=== PATIENT | female | born 1965 | race Asian ===

== ENCOUNTER → 2016-12-06 | Outpatient (CLI) | payer BC ==
[~2016-12-06] MED LIST: IBUP-1542 PO; MAG355OR14 PO; NO MEDS.; OXYC-279 PO
[2016-12-06 16:30] LABS: ADD UMIC YES; URINE BILIRUBIN (Dip) NEGATIVE (NEGATIVE); URINE BLOOD (Dip) 3+ (NEGATIVE); URINE COLOR LT. YELLOW (YELLOW); URINE GLUCOSE (Dip) NEGATIVE (NEGATIVE); URINE KETONES (Dip) NEGATIVE (NEGATIVE); URINE LEUKOCYTE ESTERASE (Dip) 3+ (NEGATIVE); URINE NITRITE (Dip) NEGATIVE (NEGATIVE); URINE TOTAL PROTEIN (Dip) 1+ (NEGATIVE); URINE UROBILINOGEN (Dip) 0.2 E.U./dL (0.1-1.0)
--- NOTE | 2016-12-06 16:36 | RADRPT ---
PROCEDURE: US Retroperitoneum CLINICAL INDICATION: Hematuria TECHNIQUE: Multiple sonographic images of the kidneys and bladder were obtained. Evaluation was p erformed as well with vargas scale and color and Doppler evaluation using a curved array transducer. The images were reviewed on a high-resolution PACS workstation. COMPARISON: No prior studies are available for comparison. FINDINGS: The kidneys are well visualized. The right kidney measures 10.0 cm in length. The left kidney measu res 9.7 cm in length. Multiple echogenic foci are seen in the bilateral kidneys measuring up to 5 mm on the right and 3 mm on the left, without definite posterior shadowing, possibly nonobstructive ca lculi. No solid renal mass, hydronephrosis, or perinephric fluid is identified. Urinary bladder is incompletely distended - bladder wall is circumferentially thickened. Cholelithi asis is incidentally noted, without evidence for cholecystitis. Common bile duct measures 5 mm in d iameter. IMPRESSION: 1. Possible bilateral nonobstructive renal calculi, as above. No hydronephrosis or obstructive uro kay is seen. 2. Urinary bladder is incompletely distended and suboptimally evaluated. Bladder wall appears circ umferentially thickened, possibly artifactual secondary to incomplete distension, though cystitis or muscular hypertrophy is not excluded. 3. Cholelithiasis is seen without evidence for cholecystitis. RPTAT: QQ .Tee Rzao MD, MD Date Time Electronically viewed and signed by .Tee Razo MD, MD on 12/06/2016 16:36 .R/
[2016-12-06 17:05] LABS: SQUAMOUS EPITHELIAL CELL,UR FEW
[2016-12-06 17:06] LABS: BACTERIA,URINE MANY
== END | disposition home or self-care (01) ==
LOC: LAB 15:04
DX: R31.9 Hematuria, unspecified (principal)
CPT/HCPCS: 76775; 81001; 81003; 87086

== ENCOUNTER 2016-12-12 12:15 | Emergency (ER) | payer BC ==
[~2016-12-12] VITALS: Wt 54.0 kg
[~2016-12-12 12:15] MED LIST changes: -IBUP-1542 PO; -MAG355OR14 PO; -OXYC-279 PO
[2016-12-12] MEDS ORDERED: ONDANSETRON 4 MG INJ IV STA (13:15)
[2016-12-12] MEDS ORDERED: SOD CHLORIDE 0.9% 1,000 ML IV STA (13:15)
[2016-12-12] MEDS ORDERED: KETOROLAC 15 MG INJ IV STA (13:15)
[2016-12-12 13:40] LABS: BASOPHILS % 0.9 % (0.0-2.0); EOSINOPHILS # 0.1 10^3/ul (0.0-0.5); HEMOGLOBIN 12.6 g/dl (12.0-16.0); LYMPHOCYTES # 1.8 10^3/ul (0.8-2.9); LYMPHOCYTES % 46.1 % (15.0-51.0); MEAN CORPUSCULAR HEMOGLOBIN 31.1 pg (29.0-33.0); MEAN CORPUSCULAR VOLUME 91.6 fl (82.0-101.0); MEAN PLATELET VOLUME 6.5 fl (7.4-10.4); MONOCYTE # 0.2 10^3/ul (0.3-0.9); MONOCYTES % 5.4 % (0.0-11.0); NEUTROPHIL # 1.8 10^3/ul (1.6-7.5); NEUTROPHILS % 45.6 % (39.0-77.0); PLATELET COUNT 288 10^3/UL (140-440); RED BLOOD COUNT 4.04 10^6/ul (4.20-5.40); RED CELL DISTRIBUTION WIDTH 11.9 % (11.5-14.5); UNCORRECTED WBC 3.9 10^3/ul (4.8-10.8); WHITE BLOOD COUNT 3.9 10^3/ul (4.8-10.8)
[2016-12-12 13:44] LABS: CONDITION 1
[2016-12-12 13:46] LABS: ALBUMIN 4.2 g/dl (3.3-4.9)
[2016-12-12 13:47] LABS: INR 0.98; POTASSIUM 4.1 mmol/L (3.5-5.1)
[2016-12-12 13:49] LABS: ALBUMIN/GLOBULIN RATIO 1.35; BILIRUBIN,INDIRECT 0.2 mg/dl (0-1.1); BILIRUBIN,TOTAL 0.2 mg/dl (0.2-1.3); CREATININE 0.7 mg/dl (0.44-1.00); TOTAL PROTEIN 7.3 g/dl (6.1-8.1)
[2016-12-12 14:09] LABS: ADD UMIC YES; URINE BILIRUBIN (Dip) NEGATIVE (NEGATIVE); URINE BLOOD (Dip) NEGATIVE (NEGATIVE); URINE COLOR LT. YELLOW (YELLOW); URINE GLUCOSE (Dip) NEGATIVE (NEGATIVE); URINE KETONES (Dip) NEGATIVE (NEGATIVE); URINE LEUKOCYTE ESTERASE (Dip) TRACE (NEGATIVE); URINE NITRITE (Dip) NEGATIVE (NEGATIVE); URINE TOTAL PROTEIN (Dip) NEGATIVE (NEGATIVE); URINE UROBILINOGEN (Dip) 0.2 E.U./dL (0.1-1.0)
[2016-12-12 14:25] LABS: SQUAMOUS EPITHELIAL CELL,UR FEW; URINE RBCS 0-2 /HPF (0)
--- NOTE | 2016-12-12 14:32 | RADRPT ---
PROCEDURE: Right upper quadrant abdominal ultrasound. CLINICAL INDICATION: Abdominal pain TECHNIQUE: Mcelroy scale and color doppler ultrasound images of the right upper quadrant. COMPARISON: Abdominal ultrasound 12/06/2016 FINDINGS: Pancreas: Poorly visualized due to overlying bowel gas. Liver: Morphology: Normal in size and contour. Echogenicity: Increased echogenicity of the liver parenchyma suggestive of hepatic steatosis. Focal lesions: None. Main portal vein: Patent with hepatopetal flow. Biliary System: Normal appearing gallbladder wall. Gallstones are present within the gallbladder. No intrahepatic biliary dilatation. Common bile duct measures 3.5 mm in maximal dimension. Kidneys: Right 9.0 cm in length. Right renal cortical thickness is preserved. Normal echogenicity. No hydronephrosis. Previous seen small nonshadowing echogenic focus within the right kidney is not well visualized on t he current examination No focal lesions. No free fluid identified. IMPRESSION: Cholelithiasis without evidence of abnormal gallbladder wall thickening to suggest cholecystitis. Normal caliber of the intrahepatic and extrahepatic biliary system. RPTAT: AADD .Wesley Guerra MD, MD Date Time Electronically viewed and signed by .Wesley Guerra MD, MD on 12/12/2016 14:32 .B/
[2016-12-12] MEDS ORDERED: OXYC-279 PO (14:54)
[2016-12-12] MEDS ORDERED: IBUP-1542 PO (14:54)
[2016-12-12] MEDS ORDERED: MAG355OR14 PO (14:54)
[2016-12-12] MEDS ORDERED: OXYCODONE/ACETAMINOPHEN (5/325) TAB PO ONE (15:00)
--- NOTE | 2016-12-12 19:42 | ERD ---
ER Documentation Chief Complaint Date/Time DATE: 12/12/16 TIME: 19:37 Chief Complaint ABDOMINAL PAIN RUQ FOR ABOUT 1 WEEK. NAUSEA VOMITING. NO DIARRHEA HPI 51-year-old woman complaining of right upper quadrant abdominal pain which is colicky and radiating to the right upper back intermittent 1 week. She states last week she was diagnosed with a urinary tract infection and prescribed ciprofloxacin which she has been using daily as prescribed. She states her dysuria and increased urinary frequency have improved although her main complaint has become the right upper quadrant abdominal pain. She has also had some nausea and clear nonbloody nonbilious emesis. She has had no diarrhea, no fevers or chills, no headache or blurry vision no chest pain or shortness of breath. She states last week she underwent ultrasound which revealed gallstones. ROS All systems reviewed and are negative except as per history of present illness. Medications Home Meds Active Scripts Mag Hydrox/Al Hydrox/Simeth (Maalox Advanced Suspension) 355 Ml Oral.susp, 2 TSP PO TID for PAIN, #24 Prov:FELIBERTO FELDER MD 12/12/16 Ibuprofen* (Motrin*) 600 Mg Tab, 600 MG PO Q8 for PAIN AND/OR INFLAMMATION, #30 TAB Prov:FELIBERTO FELDER MD 12/12/16 Oxycodone HCl/Acetaminophen (Percocet 5-325 mg Tablet) 1 Each Tablet, 1 EACH PO TID for PAIN, #15 TAB Prov:FELIBERTO FELDER MD 12/12/16 Discontinued Reported Medications [No Meds.] No Conflict Check 03/14/12 Allergies Allergies: Coded Allergies: No Known Drug Allergies (Verified Allergy, Unknown, 03/14/12) PMhx/Soc Cholelithiasis History of Surgery: Yes (RT. TYMPANOPLASTY, RT. BUNIONECTOMY) Anesthesia Reaction: No Hx Neurological Disorder: No Hx Respiratory Disorders: No Hx Cardiac Disorders: No Hx Psychiatric Problems: No Hx Miscellaneous Medical Probl: No Hx Alcohol Use: No Hx Substance Use: No Hx Tobacco Use: No Smoking Status: Never smoker FmHx Family History: No diabetes Physical Exam Vitals Vital Signs Date Time Temp Pulse Resp B/P Pulse Ox O2 Delivery O2 Flow Rate FiO2 12/12/16 12:28 98.5 81 20 135/89 98 Physical Exam GENERAL: Well-developed, well-nourished, well-hydrated, in no apparent distress , looks nontoxic in appearance HEENT: Moist mucous membranes, pink conjunctiva, no cervical spine tenderness or step-off deformities, no goiter, no jaundice or icterus, extraocular movements intact without pain. No submandibular induration, and no pharyngeal erythema NEURO: Alert and oriented 3, cranial nerves II through XII intact bilaterally, pupils equal round reactive to light, no focal deficits or facial asymmetry, sensation intact distally Strength 5/5 in upper and lower extremities bilaterally CARDIAC: Regular rate and rhythm, no murmurs rubs or gallops LUNGS: Clear bilaterally no wheezing crackles or stridor ABDOMEN: Soft nontender, no guarding, no rigidity, no rebound, no psoas sign no obturator sign. Normoactive bowel sounds SKIN: Warm and dry to touch, no abrasions, contusions, or hematomas, no lacerations, no ecchymosis, no target lesions, and without ulcers EXTREMITIES: No clubbing cyanosis or edema, calves are bilaterally symmetrical, no Homans sign, no popliteal cord sign. Distal pulses equal and bilateral PSYCH: Normal affect without agitation or irritability Result Diagram: 12/12/16 1320 12/12/16 1320 Results 24 hrs Laboratory Tests Test 12/12/16 13:20 12/12/16 13:25 Alanine Aminotransferase (ALT/SGPT) 26IU/L Albumin 4.2g/dl Albumin/Globulin Ratio 1.35 Alkaline Phosphatase 58IU/L Anion Gap 13 Aspartate Amino Transf (AST/SGOT) 23IU/L Basophils # 0.010^3/ul Basophils % 0.9% Blood Morphology Comment Blood Urea Nitrogen 8mg/dl Calcium Level 9.0mg/dl Carbon Dioxide Level 30mmol/L Chloride Level 103mmol/L Creatinine 0.70mg/dl Direct Bilirubin 0.00mg/dl Eosinophils # 0.110^3/ul Eosinophils % 2.0% Globulin 3.10g/dl Glucose Level 105mg/dl Hematocrit 37.0% Hemoglobin 12.6g/dl INR International Normalized Ratio 0.98 Indirect Bilirubin 0.2mg/dl Lipase 86U/L Lymphocytes # 1.810^3/ul Lymphocytes % 46.1% Mean Corpuscular Hemoglobin 31.1pg Mean Corpuscular Hemoglobin Concent 34.0g/dl Mean Corpuscular Volume 91.6fl Mean Platelet Volume 6.5fl Monocytes # 0.210^3/ul Monocytes % 5.4% Neutrophils # 1.810^3/ul Neutrophils % 45.6% Nucleated Red Blood Cells # 0.010^3/ul Nucleated Red Blood Cells % 0.0/100WBC Platelet Count 65142^3/UL Potassium Level 4.1mmol/L Prothrombin Time 13.0Sec Prothrombin Time Ratio 1.0 Red Blood Count 4.0410^6/ul Red Cell Distribution Width 11.9% Sodium Level 142mmol/L Total Bilirubin 0.2mg/dl Total Protein 7.3g/dl White Blood Count 3.910^3/ul Urine Bilirubin NEGATIVE Urine Clarity CLEAR Urine Color LT. YELLOW Urine Glucose NEGATIVE% Urine Hemoglobin NEGATIVE Urine Ketones NEGATIVE Urine Leukocyte Esterase TRACE Urine Microscopic RBC 0-2/HPF Urine Microscopic WBC 0-2/HPF Urine Nitrite NEGATIVE Urine Specific [place] 1.015 Urine Squamous Epithelial Cells FEW Urine Total Protein NEGATIVE Urine Urobilinogen 0.2 E.U./dL Urine pH 7.0 Current Medications Medications (Trade) Dose Ordered Sig/Bala Route PRN Reason Start Time Stop Time Status Last Admin Dose Admin Sodium Chloride (NS) 1,000 ml @ 1,000 mls/hr Q1H STAT IV 12/12/16 13:15 12/12/16 14:14 DC 12/12/16 13:33 Ondansetron HCl (Zofran Inj) 4 mg ONCE STAT IV 12/12/16 13:15 12/12/16 13:17 DC 12/12/16 13:34 Ketorolac Tromethamine (Toradol) 15 mg ONCE STAT IV 12/12/16 13:15 12/12/16 13:17 DC 12/12/16 13:34 Oxycodone/ Acetaminophen (Percocet (5/ 325)) 1 tab ONCE ONCE PO 12/12/16 15:00 12/12/16 15:01 DC 12/12/16 15:40 Procedures/MDM IV line was established patient was placed on quality assurance monitor rhythm strip revealed a sinus rhythm at about 80 bpm with upright P and T waves. Patient was afebrile. Urine analysis was negative for infection. I administered 1 L normal saline intravenously, Zofran 4 mg IV, Toradol 15 mg IV , and Percocet 1 tablet p.o. with excellent effect. Patient's pain completely resolved. CBC and electrolytes were unremarkable, liver function tests were normal. Patient symptoms improved. Right upper quadrant abdominal ultrasound was performed revealing cholelithiasis although no signs of acute infection or cholecystitis was noted. Please refer to radiologist dictation for full report Differential diagnoses considered, included but not limited to acute coronary syndrome, pulmonary embolism, aortic dissection, abdominal aortic aneurysm, sepsis, stroke, meningitis, encephalitis, pneumonia, appendicitis, cholecystitis , bowel obstruction, pyelonephritis, nephrolithiasis, cystitis, as well as metabolic, hematologic, and electrolyte abnormalities. As well as abscess, cellulitis, fractures, and dislocations. Patient feels much better at this time, and vital signs are normal, symptoms have improved. I did give strict instructions to return to the ED if symptoms continue or worsen, patient will otherwise follow-up with primary care physician. Patient understood instructions and agreed to plan. Departure Diagnosis: Primary Impression: Cholelithiasis Cholelithiasis location: gallbladder Cholecystitis presence: without cholecystitis Biliary obstruction: without biliary obstruction Qualified Code : K80.20 - Calculus of gallbladder without cholecystitis without obstruction Condition: Good Patient Instructions: Gallstones FELIBERTO FELDER MD Dec 12, 2016 19:42
== END 2016-12-12 14:55 | disposition home or self-care (01) ==
LOC: E/R 12:15
DX: K80.20 Calculus of gallbladder without cholecystitis without obstruction (principal); R40.2252 Coma scale, best verbal response, oriented, at arrival to emergency department; R11.2 Nausea with vomiting, unspecified; R40.2142 Coma scale, eyes open, spontaneous, at arrival to emergency department; R40.2362 Coma scale, best motor response, obeys commands, at arrival to emergency department
CPT/HCPCS: 36415; 76705; 80053; 81001; 83690; 85025; 85610; 96374; 96375; 99285; J1885; J2405; J7030; 81003

== ENCOUNTER → 2016-12-19 | Outpatient (CLI) | payer BC ==
[~2016-12-19] MED LIST changes: +IBUP-1542 PO; +IOHEXOL 300MG/ML 150 ML BTL ONE; +MAG355OR14 PO; -NO MEDS.; +OXYC-279 PO; +SOD CHLORIDE 0.9% 100 ML ONE
--- NOTE | 2016-12-19 16:05 | RADRPT ---
PROCEDURE: CT Abdomen and Pelvis without contrast. CLINICAL INDICATION: Abdominal and pelvic pain. TECHNIQUE: CT scan of the abdomen and pelvis without and with with intravenous contrast was perfor med. Coronal and sagittal reformatted images were obtained from the axial source images. Images were reviewed on a high-resolution PACS workstation. The postcontrast scan was performed during intraven ous injection of 90 ml of Omnipaque-300. Total exam DLP is 394.69 mGy-cm. CTDIvol is 4.07 mGy. On e or more of the following dose reduction techniques were used: Automated exposure control, adjustme nt of the mA and/or kV according to patient size, use of iterative reconstruction technique. COMPARISON: Gallbladder ultrasound dated 12/12/2016. Renal ultrasound dated 12/06/2016. FINDINGS: The lung bases are normal. There is no pleural effusion. The liver is normal in size and attenuation. There is no focal hepatic lesion. Gallstones are present in the gallbladder. There is no evidence of cholecystitis. The bile ducts a re normal. The spleen is normal in size. There is no focal splenic lesion. Both adrenals are normal with no enlargement or mass. The pancreas is unremarkable with no mass or evidence of pancreatitis. There is no renal mass or hydronephrosis. There is no renal calculus or ureteral calculus. The abdominal aorta is not dilated. There is no retroperitoneal lymphadenopathy or mass. There is no pelvic lymphadenopathy or mass. The bladder and distal ureters are normal. The periappendiceal region is unremarkable with no evidence of appendicitis. The bowel and mesentery are normal. There is no free fluid or free gas. There are degenerative changes of the spine. There is no fracture or lytic lesion. IMPRESSION: 1. Gallstones in the gallbladder. No evidence of cholecystitis. 2. No urinary tract calculus or hydronephrosis. 3. Degenerative changes of the spine. 4. Otherwise normal CT scan of the abdomen and pelvis. RPTAT: QQ .Richi Reed MD, Date Time Electronically viewed and signed by .Richi Reed MD, on 12/19/2016 16:04 .R/
== END | disposition home or self-care (01) ==
LOC: C/S 15:15
PROVIDERS: ATTEND Internal Medicine
DX: R10.84 Generalized abdominal pain (principal); N21.0 Calculus in bladder
CPT/HCPCS: 74178; Q9967

== ENCOUNTER → 2017-01-04 | Outpatient (CLI) | payer BC ==
[~2017-01-04] MED LIST changes: -IOHEXOL 300MG/ML 150 ML BTL ONE; -SOD CHLORIDE 0.9% 100 ML ONE
[2017-01-04 07:41] LABS: ADD SCAN DIFF NO
[2017-01-04 08:08] LABS: ALBUMIN 4.5 g/dl (3.3-4.9); POTASSIUM 4.2 mmol/L (3.5-5.1)
[2017-01-04 08:10] LABS: CREATININE 0.81 mg/dl (0.44-1.00)
[2017-01-04 08:11] LABS: ALBUMIN/GLOBULIN RATIO 1.45; BILIRUBIN,INDIRECT 0.2 mg/dl (0-1.1); BILIRUBIN,TOTAL 0.2 mg/dl (0.2-1.3); CALCIUM 9.1 mg/dl (8.4-10.2); TOTAL PROTEIN 7.6 g/dl (6.1-8.1)
[2017-01-04 08:12] LABS: CHOL/HDL RATIO 2.1 RATIO
[2017-01-04 08:42] LABS: BASOPHIL # 0.1 10^3/ul (0.0-0.1); BASOPHILS % 2.1 % (0.0-2.0); EOSINOPHILS # 0.1 10^3/ul (0.0-0.5); EOSINOPHILS % 3.6 % (0.0-7.0); HEMATOCRIT 37.5 % (37.0-47.0); HEMOGLOBIN 12.2 g/dl (12.0-16.0); LYMPHOCYTES # 1.3 10^3/ul (0.8-2.9); LYMPHOCYTES % 46.1 % (15.0-51.0); MEAN CORPUSCULAR HGB CONC 32.5 g/dl (32.0-37.0); MEAN CORPUSCULAR VOLUME 92.1 fl (82.0-101.0); MEAN PLATELET VOLUME 8.9 fl (7.4-10.4); MONOCYTE # 0.2 10^3/ul (0.3-0.9); MONOCYTES % 7.1 % (0.0-11.0); NEUTROPHIL # 1.1 10^3/ul (1.6-7.5); NEUTROPHILS % 40.7 % (39.0-77.0); PLATELET COUNT 243 10^3/UL (140-415); RED BLOOD COUNT 4.07 10^6/ul (4.20-5.40); RED CELL DISTRIBUTION WIDTH 11.9 % (11.5-14.5); WHITE BLOOD COUNT 2.8 10^3/ul (4.8-10.8)
[2017-01-04 08:48] LABS: THYROID STIMULATING HORMONE 0.671 MIU/L (0.465-4.680)
[2017-01-04 09:04] LABS: ADD UMIC YES; URINE BILIRUBIN (Dip) NEGATIVE (NEGATIVE); URINE BLOOD (Dip) 1+ (NEGATIVE); URINE COLOR YELLOW (YELLOW); URINE GLUCOSE (Dip) NEGATIVE (NEGATIVE); URINE KETONES (Dip) NEGATIVE (NEGATIVE); URINE LEUKOCYTE ESTERASE (Dip) 1+ (NEGATIVE); URINE NITRITE (Dip) NEGATIVE (NEGATIVE); URINE TOTAL PROTEIN (Dip) NEGATIVE (NEGATIVE); URINE UROBILINOGEN (Dip) 0.2 E.U./dL (0.1-1.0)
[2017-01-04 09:31] LABS: MUCUS,URINE FEW; SQUAMOUS EPITHELIAL CELL,UR FEW
== END | disposition home or self-care (01) ==
LOC: LAB 06:52
PROVIDERS: ATTEND Internal Medicine
DX: Z00.00 Encounter for general adult medical examination without abnormal findings (principal)
CPT/HCPCS: 80053; 80061; 81001; 81003; 82306; 84443; 85025

== ENCOUNTER → 2017-01-06 | Outpatient (CLI) | payer BC ==
[2017-01-06 12:16] LABS: ADD SCAN DIFF NO
[2017-01-06 12:36] LABS: BASOPHIL # 0.1 10^3/ul (0.0-0.1); BASOPHILS % 1.5 % (0.0-2.0); EOSINOPHILS # 0.1 10^3/ul (0.0-0.5); EOSINOPHILS % 2.3 % (0.0-7.0); HEMATOCRIT 33.4 % (37.0-47.0); HEMOGLOBIN 11.2 g/dl (12.0-16.0); LYMPHOCYTES # 1.6 10^3/ul (0.8-2.9); LYMPHOCYTES % 46.8 % (15.0-51.0); MEAN CORPUSCULAR HEMOGLOBIN 31.2 pg (29.0-33.0); MEAN CORPUSCULAR HGB CONC 33.5 g/dl (32.0-37.0); MEAN PLATELET VOLUME 8.4 fl (7.4-10.4); MONOCYTE # 0.3 10^3/ul (0.3-0.9); MONOCYTES % 8.2 % (0.0-11.0); NEUTROPHIL # 1.4 10^3/ul (1.6-7.5); NEUTROPHILS % 41.2 % (39.0-77.0); PLATELET COUNT 212 10^3/UL (140-415); RED BLOOD COUNT 3.59 10^6/ul (4.20-5.40); RED CELL DISTRIBUTION WIDTH 11.9 % (11.5-14.5); WHITE BLOOD COUNT 3.4 10^3/ul (4.8-10.8)
[2017-01-06 12:54] LABS: ADD UMIC YES; URINE BILIRUBIN (Dip) NEGATIVE (NEGATIVE); URINE BLOOD (Dip) TRACE (NEGATIVE); URINE COLOR LT. YELLOW (YELLOW); URINE GLUCOSE (Dip) NEGATIVE (NEGATIVE); URINE KETONES (Dip) NEGATIVE (NEGATIVE); URINE LEUKOCYTE ESTERASE (Dip) NEGATIVE (NEGATIVE); URINE NITRITE (Dip) NEGATIVE (NEGATIVE); URINE TOTAL PROTEIN (Dip) NEGATIVE (NEGATIVE); URINE UROBILINOGEN (Dip) 0.2 E.U./dL (0.1-1.0)
[2017-01-06 13:13] LABS: MUCUS,URINE MANY
== END | disposition home or self-care (01) ==
LOC: LAB 11:43
PROVIDERS: ATTEND Internal Medicine
DX: R31.9 Hematuria, unspecified (principal); R78.9 Finding of unspecified substance, not normally found in blood
CPT/HCPCS: 81001; 81003; 85025; 87086

== ENCOUNTER → 2017-01-13 | Outpatient (CLI) | payer BC ==
[2017-01-13 10:29] LABS: ADD SCAN DIFF NO
[2017-01-13 10:32] LABS: BASOPHIL # 0.1 10^3/ul (0.0-0.1); BASOPHILS % 1.5 % (0.0-2.0); EOSINOPHILS # 0.1 10^3/ul (0.0-0.5); EOSINOPHILS % 1.5 % (0.0-7.0); HEMATOCRIT 34.2 % (37.0-47.0); HEMOGLOBIN 11.7 g/dl (12.0-16.0); LYMPHOCYTES # 1.4 10^3/ul (0.8-2.9); LYMPHOCYTES % 39.7 % (15.0-51.0); MEAN CORPUSCULAR HEMOGLOBIN 31.6 pg (29.0-33.0); MEAN CORPUSCULAR HGB CONC 34.2 g/dl (32.0-37.0); MEAN CORPUSCULAR VOLUME 92.4 fl (82.0-101.0); MEAN PLATELET VOLUME 8.3 fl (7.4-10.4); MONOCYTE # 0.2 10^3/ul (0.3-0.9); MONOCYTES % 7.1 % (0.0-11.0); NEUTROPHIL # 1.7 10^3/ul (1.6-7.5); NEUTROPHILS % 49.9 % (39.0-77.0); PLATELET COUNT 236 10^3/UL (140-415); RED CELL DISTRIBUTION WIDTH 12.2 % (11.5-14.5); WHITE BLOOD COUNT 3.4 10^3/ul (4.8-10.8)
[2017-01-13 11:20] LABS: FERRITIN 31.3 ng/ml (11.1-264.0)
[2017-01-13 11:50] LABS: FOLATE 15.6 ng/ml (2.8-20.0)
[2017-01-13 12:57] LABS: IRON 111 ug/dl (35-150)
[2017-01-13 13:06] LABS: TOTAL IRON BINDING CAPACITY 340 ug/dl (241-421)
== END | disposition home or self-care (01) ==
LOC: LAB 10:04
PROVIDERS: ATTEND Internal Medicine
DX: D64.9 Anemia, unspecified (principal)
CPT/HCPCS: 82607; 82728; 82746; 83540; 85025

== ENCOUNTER 2017-03-06 08:31 | Day surgery (SDC) | payer BC ==
[~2017-03-06] VITALS: Ht 154.9 cm; Wt 54.5 kg
[2017-03-06 10:07] VITALS: Ht 154.9 cm; Wt 54.5 kg
[2017-03-06 10:36] VITALS: BP 131/77; PULSE 71; RESP 20
[2017-03-06] MEDS ORDERED: LIDOCAINE 4% SOLUTION 50 ML BTL ONE (10:46)
[2017-03-06] MEDS ORDERED: MIDAZOLAM 1 MG/ML 2 ML INJ ONE ×2 (11:45)
[2017-03-06] MEDS ORDERED: FENTAnyl 50 MCG/ML VIAL ONE (11:45)
--- NOTE | 2017-03-06 11:53 | GILP ---
DATE OF PROCEDURE: 03/06/2017 PROCEDURE: Esophagogastroduodenoscopy. PREOPERATIVE DIAGNOSIS: Patient presenting with history of borderline anemia, rule out peptic ulcer disease, neoplasm of the upper gastrointestinal tract. POSTOPERATIVE DIAGNOSES: 1. Antral gastritis. 2. Mild diffuse gastritis. 3. Whitish patches noted in the esophagus, rule out Elizabeth. DESCRIPTION OF PROCEDURE: After the informed written consent was obtained, the patient was asked to lie on the left lateral side, 3 mg Versed and 50 mcg of fentanyl was given as intravenous anesthesi a. When the patient became somnolent, the Olympus video upper endoscope was introduced into the orophar ynx, then into the esophagus. Esophagus showed evidence of a few areas of whitish patches not easil y washable with water. Biopsies were done to rule out Elizabeth of the esophagus. Scope at this time was advanced into the stomach. Stomach showed evidence of multiple areas of erythema in the antrum . Also, diffuse erythema noted in the stomach. At this time, multiple biopsies were obtained from t he antrum, the lesser curvature and the fundus to rule out H. pylori infection. Scope at this time was advanced into the duodenum. Entire duodenum appeared normal. Endoscope at this time withdrawn and on the way out no additional abnormalities detected and the procedure was terminated. PLAN: Recommend wait for the pathology report. Meanwhile, recommend Pepcid 20 mg twice a day for 1 month. Dictated By: ADELITA VILLANUEVA/RA Conf#: [id number] DID#: [id number] CC: ROGERIO SANCHEZ MD; ADELITA BARBOUR MD;*[facility]*
--- NOTE | 2017-03-06 11:56 | GILP ---
DATE OF PROCEDURE: NAME OF PROCEDURE: Colonoscopy. PREOPERATIVE DIAGNOSIS: This is a screening colonoscopy to rule out colon polyps. She has got a st se family history; her brother has colon cancer. POSTOPERATIVE DIAGNOSES: A 4 mm sessile polyp noted in the hepatic flexure which appears to be chris gn. This was removed with a cold biopsy forceps. The rest of the colon up to the appendiceal openi ng was examined, which appeared normal. Careful evaluation was carried out. On the way out, no int ernal hemorrhoids, no external hemorrhoids were noted and the procedure was terminated. PLAN: Recommend repeat colonoscopy in 3 years. Dictated By: ADELITA BARBOUR MD NC/NTS Conf#: [id number] DID#: [id number] CC: ROGERIO SANCHEZ MD;*[facility]*
[2017-03-06 12:04] VITALS: BP 115/68; PULSE 59; RESP 16
== END 2017-03-06 13:29 | disposition home or self-care (01) ==
LOC: GIL 08:31
PROVIDERS: ATTEND Internal Medicine Gastroenterology
DX: Z12.11 Encounter for screening for malignant neoplasm of colon (principal); K29.60 Other gastritis without bleeding; K63.5 Polyp of colon
CPT/HCPCS: 43239; 45380; J2250; J3010

== ENCOUNTER → 2017-06-29 | Outpatient (CLI) | payer BC ==
[~2017-06-29] MED LIST changes: -MAG355OR14 PO; -OXYC-279 PO
[2017-06-29 12:28] LABS: ADD UMIC NO; UR ASCORBIC ACID NEGATIVE (NEGATIVE); UR BILIRUBIN (Dip) NEGATIVE (NEGATIVE); UR BLOOD (Dip) NEGATIVE (NEGATIVE); UR CLARITY CLEAR (CLEAR); UR COLOR YELLOW (YELLOW); UR GLUCOSE (Dip) NEGATIVE (NEGATIVE); UR KETONES (Dip) NEGATIVE (NEGATIVE); UR LEUKOCYTE ESTERASE (Dip) NEGATIVE Leu/ul (NEGATIVE); UR NITRITE (Dip) NEGATIVE (NEGATIVE); UR SPECIFIC GRAVITY (Dip) 1.014 (1.003-1.030); UR TOTAL PROTEIN (Dip) NEGATIVE (NEGATIVE); UR UROBILINOGEN (Dip) NEGATIVE (NEGATIVE)
== END | disposition home or self-care (01) ==
LOC: LAB 11:35
PROVIDERS: ATTEND Internal Medicine
DX: N30.00 Acute cystitis without hematuria (principal); E55.9 Vitamin D deficiency, unspecified
CPT/HCPCS: 81003; 82306; 87086